=== PATIENT | male | born 1980 | race Asian ===

== ENCOUNTER 2019-12-08 16:03 | Emergency (ER) | payer SELFPAY ==
[~2019-12-08] VITALS: Ht 172.7 cm; Wt 71.2 kg
[2019-12-08 16:20] VITALS: Ht 172.7 cm; Wt 71.2 kg
[2019-12-08 18:33] VITALS: BP 117/28
== END 2019-12-08 18:33 | disposition home or self-care (01) ==
LOC: ED 16:03
DX: S93.402A Sprain of unspecified ligament of left ankle, initial encounter (principal); X50.1XXA Overexertion from prolonged static or awkward postures, initial encounter; Y93.89 Activity, other specified; Y92.89 Other specified places as the place of occurrence of the external cause; Y99.8 Other external cause status